=== PATIENT | female | born 1985 | race Hispanic/Latino ===

== ENCOUNTER 2019-10-28 09:00 | Outpatient (CLI) | payer OTHER ==
--- NOTE | 2019-10-28 11:06 | ULT ---
ULTRASOUND ABDOMEN: Date: 10/28/2019 HISTORY: Abdominal distention, acid reflux, difficulty swallowing. Constipation. FINDINGS: The liver, pancreas, gallbladder, kidneys, spleen, and visualized portions of the aorta and IVC appea r normal. No free fluid is seen. The common duct measures 4.0 mm in diameter. IMPRESSION: Normal exam. POS: [facility]
== END 2019-10-28 09:01 | disposition home or self-care (01) ==
LOC: SCSULT 09:00
PROVIDERS: ATTEND Internal Medicine Gastroenterology
DX: K59.00 Constipation, unspecified (principal); R14.0 Abdominal distension (gaseous); R13.10 Dysphagia, unspecified
CPT/HCPCS: 93975